=== PATIENT | female | born 1995 | race Caucasian/White ===

== ENCOUNTER 2024-10-23 09:54 | Emergency (ER) | payer OTHER, SELFPAY ==
--- NOTE | ~2024-10-23 | XR_ITS ---
EXAMINATION: XR tibia fibula RT 2V, XR tibia fibula LT 2V DATE: 10/23/2024 13:34 INDICATION: 2 weeks of nontraumatic bilateral lower leg pain TECHNIQUE: 1. Anteroposterior and lateral views of the right tibia and fibula were obtained. 2. Anteroposterior and lateral views of the left tibia and fibula were obtained. COMPARISON: None. FINDINGS: Normal alignment at the bilateral lower legs. No fractures. No periosteal reaction or suspicious alison tic bone lesions. Profiled joint spaces at the bilateral knees, ankles and hindfeet appear normal. Sm all enthesopathic ossicle at the calcaneal insertion of the distal right Achilles tendon. Soft tissue s are otherwise unremarkable. IMPRESSION: 1. Small enthesopathic ossicle at the distal right Achilles tendon. Otherwise unremarkable bilateral tibia/fibular radiographs. Reviewed, dictated and finalized at location A. IMPRESSION: 1. Small enthesopathic ossicle at the distal right Achilles tendon. Otherwise u nremarkable bilateral tibia/fibular radiographs.
--- NOTE | ~2024-10-23 | US_ITS ---
EXAMINATION: US venous doppler [facility] DATE: 10/23/2024 12:48 INDICATION: Bilateral lower limb pain TECHNIQUE: Grayscale ultrasound images without and with compression and Doppler ultrasound images of the bilateral lower extremity veins were obtained. COMPARISON: None. FINDINGS: The visualized portions of right common femoral vein, profunda (deep) femoral vein, femoral vein, pop liteal vein, posterior tibial veins, peroneal veins and greater saphenous vein outflow are patent. The visualized portions of left common femoral vein, profunda femoral vein, femoral vein, popliteal v ein, posterior tibial veins, peroneal veins and greater saphenous vein outflow are patent. IMPRESSION: 1. No deep venous thrombosis in either lower limb. Reviewed, dictated and finalized at location A.
[2024-10-23 10:46] VITALS: BP 150/86; PULSE 75; RESP 14; TEMP 36.6; O2SAT 100
[2024-10-23 13:03] LABS: Basophils Percent Auto 0.4 % (0.2-1.2); Eosinophils Absolute Auto 0.3 K/mm3 (0-0.3); Eosinophils Percent Auto 3.5 % (0-4.4); Hematocrit 41.8 % (37.0-47.0); Hemoglobin 13.2 g/dL (12.0-15.0); Immature Granulocyte Absolute 0.02 K/mm3 (0.00-0.031); Immature Granulocyte Percent A 0.2 % (0-0.5); Immature Platelet Fraction Pct 7.5 % (0.9-11.2); Lymphocytes Absolute Auto 1.81 K/mm3 (0.9-3.2); Lymphocytes Percent Auto 22.3 % (18.3-44.2); Mean Corpuscular HGB Conc 31.6 g/dl (32-36); Mean Corpuscular Hemoglobin 26.7 pg (26-34); Mean Corpuscular Volume 84.6 fl (80-100); Mean Platelet Volume 12.6 fl (7.4-10.4); Monocytes Absolute Auto 0.4 K/mm3 (0.1-0.6); Monocytes Percent Auto 4.9 % (2.6-8.5); Neutrophils Absolute Auto 5.6 K/mm3 (1.3-6.7); Neutrophils Percent Auto 68.7 % (45.5-73.1); Platelet Count Result 223 k/mm3 (150-375); Red Blood Count 4.94 M/mm3 (4.2-5.4); Red Cell Distribution Width 15.1 % (11.5-14.5); White Blood Count 8.1 K/mm3 (4.5-10.0)
[2024-10-23 13:12] LABS: Alanine Aminotransferase 22 U/L (6-35); Albumin Level 4.7 g/dL (3.5-5.1); Alkaline Phosphatase 65 U/L (38-126); Anion Gap 11 mmol/L (4-12); Aspartate Amino Transferase 25 U/L (14-36); Bilirubin,Total 0.4 mg/dL (0.2-1.3); Blood Urea Nitrogen 18 mg/dL (7-17); Calcium 9.3 mg/dL (8.4-10.2); Carbon Dioxide 24 mmol/L (22-30); Chloride 106 mmol/L (98-107); Estimated CRCL calculation 111 ml/min; Estimated Glomerular Filt Rate > 60; Glucose 95 mg/dL (65-110); Sodium 141 mmol/L (137-145)
--- NOTE | 2024-10-23 13:26 | ED_ITS ---
HPI - Extremity Problem General Chief complaint: Extremity Problem,Nontraumatic Stated complaint: bilateral leg pain Time Seen by Provider: 10/23/24 12:02 History of Present Illness HPI Narrative: 29-year-old female presents emergency department for evaluation for bilateral lower leg pain with some on swelling and tightness. Patient does work as a package food order delivery runner and states that she has had an increase in her outside recently. Patient was suspected that she had farooq splints. Patient states she is having some intermittent tingling to legs but denies any numbness or weakness. Patient denies any prior history of PE or DVT. Patient has no prior history of congestive heart failure and patient denies being on any medications for this. Patient had been using some compressive stockings with some improvement. Related Data Allergies Allergy/AdvReac Type Severity Reaction Status Date / Time No Known Allergies Allergy Verified 10/23/24 13:52 Review of Systems 2 Review of Systems: All systems reviewed & are unremarkable except as noted in HPI and below Exam 2 Narrative: APPEARANCE: Well appearing, no pain, no distress, well-nourished. HEAD: normocephalic, atraumatic. EYES: PERRLA/EOMI, conjunctivae clear. NOSE: Normal no drainage EARS:TMS clear with good light reflex. THROAT: Pharynx clear, no exudate. NECK: Supple. No adenopathy, no masses. RESPIRATORY: Airway patent, respirations nonlabored. Clear to auscultation bilaterally, no rales, rhonchi, wheezing. CARDIOVASCULAR: Regular rate and rhythm without murmurs rubs or gallops. ABDOMINAL: Soft, nontender, nondistended, normal bowel sounds MUSCULOSKELETAL: Moves all extremities. Strength/ROM intact, No edema, No calf tenderness. NEURO: Alert. Cranial nerves II through XII intact. SKIN: Warm, dry. Normal Color Course Vital Signs Vital signs: Vital Signs Temperature 97.8 F 10/23/24 10:46 Pulse Rate 75 10/23/24 10:46 Respiratory Rate 14 10/23/24 10:46 Blood Pressure 150/86 H 10/23/24 10:46 Pulse Oximetry 100 10/23/24 10:46 Oxygen Delivery Room Air 10/23/24 10:46 Temperature 98.9 F 10/23/24 14:22 Pulse Rate 78 10/23/24 14:22 Respiratory Rate 19 10/23/24 14:22 Blood Pressure 150/85 H 10/23/24 14:22 Pulse Oximetry 100 10/23/24 14:22 Oxygen Delivery Room Air 10/23/24 10:46 MDM - Extremity (Nontraumatic) MDM Narrative Medical decision making narrative: 29-year-old female present to the emergency department for evaluation for lower extremity tightness and swelling. X-rays were negative for acute fractures. Ultrasounds were negative for DVT. Patient is currently afebrile with no leukocytosis and a stable hemoglobin 13.2. No significant abnormalities on the patient's CMP. Patient was advised to take naproxen for pain control, continue to wear her compression stockings and to have close follow-up with her primary care physician. Patient was also advised to take omeprazole due to underlying history of GERD and I did not want her to develop an ulcer while taking the scheduled Naprosyn. Patient was comfortable the plan for discharge and close follow Differential Diagnosis Differential diagnosis: Likely cellulitis, superficial thrombophlebitis, deep venous thrombosis of upper extremity, deep vein thrombosis of lower extremity and other Lab Data 10/23/24 12:51 10/23/24 12:51 Labs: Lab Results 10/23/24 Range/Units 12:51 WBC 8.1 (4.5-10.0) K/mm3 RBC 4.94 (4.2-5.4) M/mm3 Hgb 13.2 (12.0-15.0) g/dL Hct 41.8 (37.0-47.0) % MCV 84.6 (80-100) fl MCH 26.7 (26-34) pg MCHC 31.6 L (32-36) g/dl RDW 15.1 H (11.5-14.5) % Plt Count 223 (150-375) k/mm3 MPV 12.6 H (7.4-10.4) fl Immature Gran % (Auto) 0.2 (0-0.5) % Neut % (Auto) 68.7 (45.5-73.1) % Lymph % (Auto) 22.3 (18.3-44.2) % [place] % (Auto) 4.9 (2.6-8.5) % Eos % (Auto) 3.5 (0-4.4) % Baso % (Auto) 0.4 (0.2-1.2) % Lymph # (Auto) 1.81 (0.9-3.2) K/mm3 [place] # (Auto) 0.4 (0.1-0.6) K/mm3 Eos # (Auto) 0.3 (0-0.3) K/mm3 Baso # (Auto) 0.0 (0.0-0.1) K/mm3 Abs Immat Gran (auto) 0.02 (0.00-0.031) K/mm3 Absolute Neuts (auto) 5.6 (1.3-6.7) K/mm3 Absolute Nucleated RBC 0.000 (0.0-0.012) K/mm3 Nucleated RBC % 0.0 (0.0-0.2) % % Immature Plt Fraction 7.5 (0.9-11.2) % Sodium 141 (137-145) mmol/L Potassium 4.0 (3.4-5.0) mmol/L Chloride 106 (98-107) mmol/L Carbon Dioxide 24 (22-30) mmol/L Anion Gap 11 (4-12) mmol/L BUN 18 H (7-17) mg/dL Creatinine 0.72 (0.7-1.0) mg/dL Estim Creat Clear Calc 111 ml/min Estimated GFR > 60 (59 - ) Glucose 95 (65-110) mg/dL Calcium 9.3 (8.4-10.2) mg/dL Total Bilirubin 0.4 (0.2-1.3) mg/dL AST 25 (14-36) U/L ALT 22 (6-35) U/L Alkaline Phosphatase 65 (38-126) U/L Total Creatine Kinase 227 H (30-135) U/L Total Protein 8.0 (6.3-8.2) g/dL Albumin 4.7 (3.5-5.1) g/dL Discharge Plan Discharge Clinical Impression: Bilateral leg pain Patient Disposition: Home, Self-Care Condition: Stable Instructions: Antibiotic Form, Leg Pain (ED) Additional Instructions: Naprosyn as scheduled for pain control. Omeprazole as directed to help decrease stomach acid and prevent a gastric ulcer. Continue to wear your compressive stockings. Have close follow-up with your primary care physician. If you have any worsening symptoms then please call or return to the emergency department. Patient Language: Macanese Prescriptions: New naproxen [Naprosyn] 500 mg tablet 500 mg PO BID 7 Days Qty: 14 0RF omeprazole 20 mg tablet,disintegrat, delay rel 20 mg PO DAILY 14 Days Qty: 14 0RF Follow-up/Referrals: UNKNOWN,DOCTOR [Primary Care Provider] - Stand Alone Forms: Work/School Release IP
[2024-10-23 13:37] LABS: Creatine Kinase 227 U/L (30-135)
[2024-10-23] MEDS: KETOROLAC 30 MG/ML VIAL (*BKC) IM (13:56)
[2024-10-23] MEDS: PANTOPRAZOLE 40 MG TABLET PO (13:56)
[2024-10-23 14:22] VITALS: BP 150/85; PULSE 78; RESP 19; TEMP 37.2; O2SAT 100
== END 2024-10-23 14:20 | disposition home or self-care (01) ==
PROVIDERS: Emergency Provider Emergency Medicine
DX: M79.605 Pain in left leg (principal); M79.604 Pain in right leg
CPT/HCPCS: 36415; 73590; 80053; 82550; 85025; 85055; 93970; 96372; 99284; A9270; J1885